=== PATIENT | female | born 1990 | race African-American/Black ===

== ENCOUNTER 2022-06-20 21:17 | Emergency (ER) | payer MEDICAID, OTHER ==
[~2022-06-20] VITALS: Ht 170.2 cm; Wt 73.0 kg
[~2022-06-20 21:17] MED LIST: PRENATAL ONE T1 EACH PO
[2022-06-20 23:03] VITALS: BP 124/86
== END 2022-06-21 06:59 | disposition home or self-care (01) ==
LOC: ER 21:17
DX: R45.851 Suicidal ideations (principal); Z13.9 Encounter for screening, unspecified; Z59.00 Homelessness unspecified; Z86.59 Personal history of other mental and behavioral disorders
CPT/HCPCS: 99283

== ENCOUNTER 2022-06-21 18:55 | Emergency (ER) | payer MEDICAID ==
[~2022-06-21] VITALS: Ht 162.6 cm; Wt 65.0 kg
[2022-06-21 19:27] VITALS: BP 128/101
== END 2022-06-21 19:56 | disposition home or self-care (01) ==
LOC: ER 18:55
DX: Z04.89 Encounter for examination and observation for other specified reasons (principal); F20.9 Schizophrenia, unspecified; F31.9 Bipolar disorder, unspecified; R45.851 Suicidal ideations; Z59.00 Homelessness unspecified
CPT/HCPCS: 99281

== ENCOUNTER 2022-06-21 20:00 | Emergency (ER) | payer MEDICAID ==
[~2022-06-21] VITALS: Ht 162.6 cm; Wt 65.0 kg
[2022-06-21 20:25] VITALS: BP 131/92
== END 2022-06-21 22:35 | disposition home or self-care (01) ==
LOC: ER 20:00
DX: R45.851 Suicidal ideations (principal); R03.0 Elevated blood-pressure reading, without diagnosis of hypertension; F20.9 Schizophrenia, unspecified; F31.9 Bipolar disorder, unspecified; Z28.310 Unvaccinated for COVID-19
CPT/HCPCS: 99281